=== PATIENT | female | born 1945 | race African-American/Black ===

== ENCOUNTER 2018-06-28 16:15 | Emergency (ER) | payer OTHER ==
[~2018-06-28] VITALS: Ht 172.7 cm; Wt 70.3 kg
[2018-06-28 17:20] VITALS: BP 121/82
[2018-06-28] MEDS ORDERED: SENNA-DOCUSATE1 EAC1 PO (17:37)
[2018-06-28] MEDS ORDERED: NORCO 5-325 TA1 EACH PO (17:37)
[2018-06-28] MEDS ORDERED: ORPHENADRINE C100 M2 PO (17:37)
== END 2018-06-28 18:25 | disposition home or self-care (01) ==
LOC: ER 16:15
DX: S16.1XXA Strain of muscle, fascia and tendon at neck level, initial encounter (principal); S40.011A Contusion of right shoulder, initial encounter; Z96.653 Presence of artificial knee joint, bilateral; Z90.49 Acquired absence of other specified parts of digestive tract; Z90.710 Acquired absence of both cervix and uterus; V89.0XXA Person injured in unspecified motor-vehicle accident, nontraffic, initial encounter; Y93.89 Activity, other specified; Y92.89 Other specified places as the place of occurrence of the external cause; Y99.8 Other external cause status

== ENCOUNTER → 2019-08-09 | Outpatient (CLI) | payer OTHER ==
[~2019-08-09] MED LIST: NORCO 5-325 TA1 EACH PO; ORPHENADRINE C100 M2 PO; SENNA-DOCUSATE1 EAC1 PO
== END ==
LOC: SJCVC 10:57
DX: R94.31 Abnormal electrocardiogram [ECG] [EKG] (principal); I10 Essential (primary) hypertension; E78.5 Hyperlipidemia, unspecified; E11.9 Type 2 diabetes mellitus without complications; I25.10 Atherosclerotic heart disease of native coronary artery without angina pectoris; Z79.899 Other long term (current) drug therapy; Z87.891 Personal history of nicotine dependence